=== PATIENT | male | born 1980 | race Caucasian/White ===

== ENCOUNTER 2024-06-22 15:24 | Outpatient (CLI) | payer OTHER, SELFPAY ==
--- NOTE | 2024-06-29 12:25 | W.PM.SLEEP ---
Sleep Study Details Details Interpreting Provider: Isidro Date of Sleep Study: 06/22/24 Sleep Study Details: STUDY TYPE:? Home unattended ? BMI:? 39.5 ORDERING PROVIDER:? Xuan INDICATION:? Concern about sleep apnea ? SLEEP SUMMARY:? 324 minutes monitored RESPIRATORY SUMMARY:? AHI 20.2 Low oxygen 82 30.1% of study oxygen was less than 90% Snoring not recorded PERIODIC LIMB MOVEMENTS OF SLEEP:? Not recorded CARDIAC:? Range 51-118, mean 101.1 beats per minute IMPRESSION:? Moderate obstructive sleep apnea. Significant oxygen desaturation for 30% of the study oxygen was less than 90% Tachycardia including average heart rate of 101.1 beats per minute RECOMMENDATION: Treatment options for the sleep apnea include CPAP either home or in-lab. A dental appliance may be an option as well. Once effective therapy is established overnight oximetry should be performed. Further cardiac evaluation may be indicated due to tachycardia.
== END 2024-06-22 15:25 | disposition home or self-care (01) ==
LOC: SLEEP 15:27
PROVIDERS: PCP Family Medicine; Visit Provider Family Medicine
DX: G47.33 Obstructive sleep apnea (adult) (pediatric) (principal)
CPT/HCPCS: 95806

== ENCOUNTER 2024-07-29 09:00 | Outpatient (CLI) | payer OTHER, SELFPAY | END 2024-07-29 09:01 | disposition home or self-care (01) | LOC: LKVREF 09:03 | PROVIDERS: PCP Family Medicine; Visit Provider Family Medicine | DX: Z00.00 Encounter for general adult medical examination without abnormal findings (principal); F41.9 Anxiety disorder, unspecified; R00.0 Tachycardia, unspecified; I10 Essential (primary) hypertension | CPT/HCPCS: 80053; 80061; 84443 ==

== ENCOUNTER 2024-10-08 08:48 | Outpatient (CLI) | payer OTHER, SELFPAY | END 2024-10-08 08:49 | disposition home or self-care (01) | LOC: RAD 08:48 | PROVIDERS: PCP Family Medicine; Visit Provider Family Medicine | DX: R00.0 Tachycardia, unspecified (principal); I34.0 Nonrheumatic mitral (valve) insufficiency | CPT/HCPCS: 93306 ==

== ENCOUNTER 2024-11-05 07:10 | Outpatient (CLI) | payer OTHER, SELFPAY ==
--- NOTE | 2024-11-05 07:15 | CRLHL7_ITS ---
For Patients: As a result of the Century Cures Act, medical imaging exams and procedure reports are released immediately into your electronic medical record. You may view this report before your referring provider. If you have questions, please contact your health care provider. INDICATION: Abnormal blood chemistry COMPARISON: none TECHNIQUE: Real time calzada scale imaging and color Doppler analysis was performed of the right upper quadrant. FINDINGS: Examination limited due to bowel gas and body habitus. Liver is diffusely echogenic. Hypoechoic lesion within the left hepatic lobe measures 3.7 x 2.0 x 3.1 cm. Liver measures 18.8 cm. Gallbladder appears normal. Gallbladder wall measures 2 millimeters. Common bile duct and pancreas are not well visualized. Normal right kidney which measures 11.7 cm. Aorta and IVC normal. IMPRESSION: Hepatomegaly with severe hepatic steatosis. Indeterminate 3.7 cm hypoechoic lesion within the liver. MRI recommended. Dictated by Alli Marsh MD @ 11/05/2024 11:39:15 AM (Electronically Signed)
== END 2024-11-05 07:11 | disposition home or self-care (01) ==
LOC: US 07:11
PROVIDERS: PCP Family Medicine; Visit Provider Family Medicine
DX: R79.89 Other specified abnormal findings of blood chemistry (principal); R16.0 Hepatomegaly, not elsewhere classified; K76.0 Fatty (change of) liver, not elsewhere classified
CPT/HCPCS: 76705